=== PATIENT | female | born 1940 | race Caucasian/White ===

== ENCOUNTER 2022-05-17 12:45 | Emergency (ER) | payer OTHER ==
[~2022-05-17] VITALS: Ht 157.5 cm; Wt 55.3 kg
[2022-05-17] MEDS ORDERED: TRAZODONE HCL150 MG PO (13:11)
[2022-05-17] MEDS ORDERED: MIRTAZAPINE7.5 MG PO (13:12)
[2022-05-17] MEDS ORDERED: ALLERGY RELIE15.8 ML (13:12)
[2022-05-17] MEDS ORDERED: TOPROL XL25 M1 PO (13:12)
[2022-05-17] MEDS ORDERED: VENLAFAXINE HC150 M1 PO (13:12)
[2022-05-17] MEDS ORDERED: CRESTOR20 MG PO (13:12)
[2022-05-17] MEDS ORDERED: ZESTRIL5 MG PO (13:13)
[2022-05-17] MEDS ORDERED: MEMANTINE HCL10 MG PO (13:13)
[2022-05-17] MEDS ORDERED: VIVITROL380 MG PO (13:13)
== END 2022-05-17 16:46 | disposition home or self-care (01) ==
LOC: ER 12:45
DX: S99.911A Unspecified injury of right ankle, initial encounter (principal); S99.922A Unspecified injury of left foot, initial encounter; W19.XXXA Unspecified fall, initial encounter; Y93.9 Activity, unspecified; Y92.9 Unspecified place or not applicable